=== PATIENT | male | born 1945 | race Caucasian/White ===

== ENCOUNTER 2021-10-12 13:23 | Inpatient (IN) ==
[2021-10-12 14:29] LABS: Hematocrit 42.4 % (40.1-51.0); Hemoglobin 14.5 g/dL (13.7-17.5); Mean Cell Volume 93.2 fL (80.0-100.0); Mean Corpuscular HGB Conc 34.2 g/dL (31.0-36.0); Mean Platelet Volume 9.4 fL (7.4-10.4); Platelet Count 144 K/mcL (140-440); RBC 4.55 M/mcL (4.63-6.08); WBC 12.3 K/mcL (4.5-11.0)
[2021-10-12 14:50] LABS: Band Neutrophils % 2 % (0-10); Lymphocytes % 3 % (15-49); Monocytes % (Manual) 5 % (1-12); Platelet Estimate NORMAL (Normal); RBC Morphology NORMAL (Normal); Reactive Lymphocytes 1 % (0-2); Segmented Neutrophils % 89 % (38-78)
[2021-10-12 14:51] LABS: ALT/SGPT 158 U/L (<40); AST/SGOT 246 U/L (<40); Albumin 3.6 gm/dL (3.2-5.2); Albumin/Globulin Ratio 1.4 (1.0-2.3); Alkaline Phosphatase 269 U/L (39-117); Bilirubin,Total 2.2 mg/dL (0.1-1.0); Blood Urea Nitrogen 13 mg/dL (8-23); Calcium 8.5 mg/dL (8.6-10.4); Carbon Dioxide 23 mmol/L (22-30); Chloride 100 mmol/L (96-108); Globulin 2.6 gm/dL (2.2-3.7); Glomerular Filtration Rate 72; Glucose 122 mg/dL (70-105)
[2021-10-12] MEDS ORDERED: ACETAMINOPHEN 500 MG TABLET PO ONE (15:01)
[2021-10-12] MEDS ORDERED: cefTRIAXone 2 GM in DEXTROSE 5% IN WATER 50 ML IV ONE (15:42)
[2021-10-12] MEDS ORDERED: VANCOMYCIN PER PHARMACY IV ONE ×2 (15:42→15:53)
[2021-10-12] MEDS ORDERED: IPRATROPIUM/ALBUTEROL 3 ML AMPUL.NEB NEB PRN (15:46)
[2021-10-12] MEDS ORDERED: PROCHLORPERAZINE 10 MG/2 ML VIAL IV PRN (15:46)
[2021-10-12] MEDS ORDERED: ACETAMINOPHEN 325 MG TABLET PO PRN (15:46)
[2021-10-12] MEDS ORDERED: MAGNESIUM HYDROXIDE 30 ML ORAL.SUSP PO PRN (15:46)
[2021-10-12] MEDS ORDERED: ONDANSETRON 4 MG/2 ML VIAL IV PRN (15:46)
[2021-10-12] MEDS ORDERED: ONDANSETRON 4 MG ODT TABLET SL PRN (15:46)
--- NOTE | 2021-10-12 15:58 | Emergency Department Note ---
HPI General Chief complaint: Extremity Injury, Lower Stated complaint: Knee pain Time Seen by Provider: 10/12/21 13:39 Source: patient Mode of arrival: ambulatory Limitations: no limitations History of Present Illness HPI Narrative: Narrative: This is a 75-year-old male who presents to the emergency department complaining of worsening left leg pain, swelling, redness, and warmth. About 3 weeks ago patient fell on cement and skinned up his knee. It seemed to be healing until yesterday when he started having redness and warmth. He was seen in the emergency department yesterday and treated for cellulitis. At that time he had an x-ray of his knee that was normal other than some soft tissue swelling. He was started on Keflex. Last night the swelling worsened. He became febrile. Patient states that his knee is painful. He is able to bear weight and to bend it. Related Data Home Medications Medication Instructions Recorded Confirmed aspirin 81 mg tablet,delayed 81 mg PO QDAY tab 11/20/14 10/12/21 release losartan 25 mg tablet 25 mg PO QDAY 10/12/21 10/12/21 rosuvastatin 5 mg tablet 20 mg PO QPM 10/12/21 10/12/21 Previous Rx's Medication Instructions Recorded amlodipine 5 mg tablet 5 mg PO QDAY 90 Days #90 tab 09/23/21 metoprolol succinate 25 mg 25 mg PO QDAY 90 Days #90 tab 09/23/21 tablet,extended release 24 hr olmesartan 20 mg tablet 20 mg PO QDAY #90 tab 09/23/21 sertraline 50 mg tablet 50 mg PO QDAY 90 Days #90 tab 09/23/21 sildenafil 50 mg tablet 50 mg PO QDAY PRN #30 tab 09/23/21 Allergies Allergy/AdvReac Type Severity Reaction Status Date / Time bupropion Allergy Unknown Unknown Verified 10/12/21 13:35 atorvastatin AdvReac Mild Diarrhea Verified 10/12/21 15:52 hydrochlorothiazide AdvReac Mild Dizziness Verified 10/12/21 15:52 lisinopril AdvReac Mild Cough Verified 10/12/21 15:52 Review of Systems ROS ROS Narrative: Narrative: All systems ED: reviewed and negative except as stated. FOR[facility], [facility] Narrative Patient History Narrative: Narrative: Medical/Surgical/Family History All Active Problems Septic prepatellar bursitis (Acute) Cellulitis (Acute) Medicare annual wellness visit, initial (Acute) History of tonsillectomy (Chronic) Hx of inguinal herniorrhaphy (Chronic) History of hernia repair (Chronic) History of appendectomy (Chronic) Syncope (Chronic) Pre-syncope (Chronic) Neck pain (Chronic) Hypertension, essential (Chronic) Hyperlipidemia (Chronic) Head injury (Chronic) Fracture of ribs, multiple (Chronic) Fall from ladder (Chronic 11/30/13) Dyslipidemia (Chronic) Depression (Chronic) Concussion (Chronic) Carotid stenosis (Chronic) Back pain (Chronic) Anxiety disorder (Chronic) AA (alcohol abuse) (Chronic) Medical History AA (alcohol abuse) Anxiety disorder Back pain Upper Carotid stenosis Carotid Ultrasound December 142013 Compression fracture of body of thoracic vertebra Concussion 2013 Depression Dyslipidemia Fall from ladder (11/30/13) Head Contusion, loss of consciousness Fracture of ribs, multiple Two ribs, multiple left sided Headache Hyperlipidemia Hypertension, essential Neck pain Lower Pre-syncope Syncope 11/2013 Surgical History History of appendectomy History of colonoscopy (08/16/16) History of hernia repair Bilateral History of laceration of skin Head and left Elbow History of tonsillectomy Hx of inguinal herniorrhaphy Family History Father Cerebrovascular accident Mother Cerebrovascular accident Social History Smoking Status: Never smoker Alcohol Intake Frequency: former alcohol drinker Substance Use: does not use Exam Narrative Narrative: Narrative: General Limitations: no limitations General appearance: Present alert and in no apparent distress Head Head: Present atraumatic and normocephalic Respiratory Respiratory: Present normal lung sounds bilaterally; Absent rales/crackles or wheezes Cardiovascular Cardiovascular: Present regular rate, normal rhythm and normal heart sounds Adbominal Abdominal: Present soft; Absent tenderness Psychiatric Psychiatric: Present normal affect Skin Skin: Present warm (WNL) and dry Other Other information: Examination of the left knee reveals full extension and flexion to 90 degrees. Patient has anterior and lateral erythema, warmth, swelling, and tenderness. He has developed a 1 cm pustule over the anterior knee just distal to the joint line and several 2 mm pustules in this area. Course Vital Signs Vital signs: Vital Signs Temperature 102.2 F H 10/12/21 13:33 Pulse Rate 96 H 10/12/21 13:33 Respiratory Rate 18 10/12/21 13:33 Blood Pressure 144/72 10/12/21 13:33 Pulse Oximetry (%) 96 10/12/21 13:33 Temperature 102.2 F H 10/12/21 13:33 Pulse Rate 90 10/12/21 15:02 Respiratory Rate 19 10/12/21 15:02 Blood Pressure 132/77 10/12/21 15:01 Pulse Oximetry (%) 94 10/12/21 15:02 [facility] MDM Narrative Medical decision making narrative: Narrative: Patient was started on IV fluids. I discussed the patient with Dr. Tellez, the on-call orthopedist. After our discussion I did attempt to aspirate the larger pustule on patient's knee. The knee was cleaned with iodine, 0.5mL of 1% lidocaine was injected into the skin over the fluctuant area. An 18-gauge needle was then inserted into the fluctuant area and attempt was made to aspirate this. Unfortunately there was no fluid to aspirate. I did unroof one of the smaller pustules and collected a small amount of purulent drainage. Labs were reviewed per the electronic health record. I discussed patient with the hospitalist who has agreed to admit the patient for septic bursitis. Dr. Tellez will consult. IV ceftriaxone and IV vancomycin were ordered. Lab Data Result diagrams: 10/12/21 13:45 10/12/21 13:45 Labs: Lab Results 10/12/21 10/12/21 Range/Units 13:45 13:45 WBC 12.3 H (4.5-11.0) K/mcL RBC 4.55 L (4.63-6.08) M/mcL Hgb 14.5 (13.7-17.5) g/dL Hct 42.4 (40.1-51.0) % MCV 93.2 (80.0-100.0) fL MCH 31.9 (26.0-34.0) pg MCHC 34.2 (31.0-36.0) g/dL RDW 13.0 (11.5-14.5) % Plt Count 144 (140-440) K/mcL MPV 9.4 (7.4-10.4) fL Seg Neutrophils % 89 H (38-78) % Band Neutrophils % 2 (0-10) % Lymphocytes % 3 L (15-49) % Monocytes % (Manual) 5 (1-12) % Reactive Lymphocytes 1 (0-2) % Platelet Estimate Normal (Normal) RBC Morphology Normal (Normal) VBG Lactic Acid 1.1 (0.5-2.0) mmol/L Sodium 133 (133-145) mmol/L Potassium 3.6 (3.3-5.1) mmol/L Chloride 100 (96-108) mmol/L Carbon Dioxide 23 (22-30) mmol/L Anion Gap 10.0 (8.0-16.0) BUN 13 (8-23) mg/dL Creatinine 1.0 (0.7-1.2) mg/dL GFR Calculation 72 Glucose 122 H (70-105) mg/dL Calcium 8.5 L (8.6-10.4) mg/dL Total Bilirubin 2.2 H (0.1-1.0) mg/dL AST 246 H (<40) U/L ALT 158 H (<40) U/L Alkaline Phosphatase 269 H (39-117) U/L Total Protein 6.2 (5.9-8.4) gm/dL Albumin 3.6 (3.2-5.2) gm/dL Globulin 2.6 (2.2-3.7) gm/dL Albumin/Globulin Ratio 1.4 (1.0-2.3) Discharge Plan Patient/Caregiver Discharge Instructions Pt seen by MARKETING ANALYTICS ANALYST/PA only: Yes Clinical Impression: Septic prepatellar bursitis Patient Disposition: Xfer As Inpt ([facility]) Follow up with: Luis E Jeffers PALeahC [Primary Care Provider] - Prescriptions: No Action aspirin 81 mg tablet,delayed release (DR/EC) 81 mg PO QDAY 0RF sertraline 50 mg tablet 50 mg PO QDAY 90 Days Qty: 90 3RF Rx Instructions: for mood olmesartan 20 mg tablet 20 mg PO QDAY Qty: 90 3RF metoprolol succinate 25 mg tablet extended release 24 hr 25 mg PO QDAY 90 Days Qty: 90 3RF amlodipine 5 mg tablet 5 mg PO QDAY 90 Days Qty: 90 3RF sildenafil 50 mg tablet 50 mg PO QDAY PRN (Reason: sexual activity) Qty: 30 0RF Rx Instructions: administer 30 minutes to 4 hours before activity losartan 25 mg tablet 25 mg PO QDAY 0RF Label Comments: [NO ORIGINAL SIG] rosuvastatin 5 mg tablet 20 mg PO QPM 0RF Rx Instructions: for high cholesterol
[2021-10-12] MEDS ORDERED: VANCOMYCIN PER PHARMACY IV SCH (16:00)
[2021-10-12] MEDS ORDERED: 0.9 % SODIUM CHLORIDE 1,000 ML IV ONE (16:17)
[2021-10-12] MEDS ORDERED: VANCOMYCIN 1,500 MG in 0.9 % SODIUM CHLORIDE 500 ML IV ONE (17:00)
[2021-10-12] MEDS: 0.9 % SODIUM CHLORIDE 1,000 ML IV SCH (17:12)
--- NOTE | 2021-10-12 17:47 | Orthopedic History & Physical ---
HPI History of Present Illness Patient information: Note initiated : 10/12/21 at 5:47 pm Service Date, if different from initiated Date: [] Patient: Jurgen Marrero 75 y/o M admitted on 10/12/21 for Knee pain. Chief Complaint: [left knee pain ] Chief complaint: Left knee pain History of present illness: Mr. Marrero is a 75 year old Male who presented to the emergency department complaining of worsening left leg pain, swelling, redness, and warmth. About 3 weeks ago the patient fell on cement and skinned up his knee. It seemed to be healing until yesterday when he started having redness and warmth. He was seen in the emergency department yesterday and treated for cellulitis. At that time he had an x-ray of his knee that was normal other than some soft tissue swelling. He was started on Keflex. Last night the swelling worsened. He became febrile. Patient states that his knee is painful to touch and with any range of motion. He denies: N+V, change in bowel habits, headache or abdomen pain. Review of Systems All systems: reviewed and no additional remarkable complaints except as stated PFSH PFSH All Active Problems Septic prepatellar bursitis (Acute) Cellulitis (Acute) Medicare annual wellness visit, initial (Acute) History of tonsillectomy (Chronic) Hx of inguinal herniorrhaphy (Chronic) History of hernia repair (Chronic) History of appendectomy (Chronic) Syncope (Chronic) Pre-syncope (Chronic) Neck pain (Chronic) Hypertension, essential (Chronic) Hyperlipidemia (Chronic) Head injury (Chronic) Fracture of ribs, multiple (Chronic) Fall from ladder (Chronic 11/30/13) Dyslipidemia (Chronic) Depression (Chronic) Concussion (Chronic) Carotid stenosis (Chronic) Back pain (Chronic) Anxiety disorder (Chronic) AA (alcohol abuse) (Chronic) Medical History AA (alcohol abuse) Anxiety disorder Back pain Upper Carotid stenosis Carotid Ultrasound December 142013 Compression fracture of body of thoracic vertebra Concussion 2014 Depression Dyslipidemia Fall from ladder (11/30/13) Head Contusion, loss of consciousness Fracture of ribs, multiple Two ribs, multiple left sided Headache Hyperlipidemia Hypertension, essential Neck pain Lower Pre-syncope Syncope 11/2013 Surgical History History of appendectomy History of colonoscopy (08/16/16) History of hernia repair Bilateral History of laceration of skin Head and left Elbow History of tonsillectomy Hx of inguinal herniorrhaphy Family History Father Cerebrovascular accident Mother Cerebrovascular accident Social History household members: spouse housing: house lives independently: Yes marital status: education level: high school service: Yes ([id number]) branch: [employer] occupational status: 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, carpentry, business agency owner - laundry, car wash eating out: rarely or never physical activity: walking smoking status: Never smoker alcohol intake frequency: former alcohol drinker substance use type: does not use lisa/mandaeism: None seatbelt use: always MEDS/ALLERGIES Home Medications and Allergies Home Medications Medication Instructions Recorded Confirmed Type aspirin 81 mg tablet,delayed 81 mg PO QDAY tab 11/20/14 10/12/21 History release amlodipine 5 mg tablet 5 mg PO QDAY 90 Days #90 tab 09/23/21 10/12/21 Rx metoprolol succinate 25 mg 25 mg PO QDAY 90 Days #90 tab 09/23/21 10/12/21 Rx tablet,extended release 24 hr olmesartan 20 mg tablet 20 mg PO QDAY #90 tab 09/23/21 10/12/21 Rx sertraline 50 mg tablet 50 mg PO QDAY 90 Days #90 tab 09/23/21 10/12/21 Rx sildenafil 50 mg tablet 50 mg PO QDAY PRN #30 tab 09/23/21 10/12/21 Rx losartan 25 mg tablet 25 mg PO QDAY 10/12/21 10/12/21 History rosuvastatin 5 mg tablet 20 mg PO QPM 10/12/21 10/12/21 History Allergies Allergy/AdvReac Type Severity Reaction Status Date / Time bupropion Allergy Unknown Unknown Verified 10/12/21 13:35 atorvastatin AdvReac Mild Diarrhea Verified 10/12/21 15:52 hydrochlorothiazide AdvReac Mild Dizziness Verified 10/12/21 15:52 lisinopril AdvReac Mild Cough Verified 10/12/21 15:52 Physical Examination Narrative Narrative: Narrative: Results Labs Result Diagrams: 10/12/21 13:45 10/12/21 13:45 Labs: Abnormal lab results 10/12/21 10/12/21 Range/Units 13:45 13:45 WBC 12.3 H (4.5-11.0) K/mcL RBC 4.55 L (4.63-6.08) M/mcL Seg Neutrophils % 89 H (38-78) % Lymphocytes % 3 L (15-49) % Glucose 122 H (70-105) mg/dL Calcium 8.5 L (8.6-10.4) mg/dL Total Bilirubin 2.2 H (0.1-1.0) mg/dL AST 246 H (<40) U/L ALT 158 H (<40) U/L Alkaline Phosphatase 269 H (39-117) U/L H & H 10/12/21 Range/Units 13:45 Hgb 14.5 (13.7-17.5) g/dL Hct 42.4 (40.1-51.0) % All other labs normal. A/P Narrative A/P Narrative: On exam patient is seated in bed in no acute distress, lungs are equal and clear bilaterally heart normal rate and rhythm. Head, neck, and upper extremities are non tender to palpation and exhibit normal range of motion. Chest and abdomen are non-tender. At the right knee area there is diffuse moderate swelling and blanching erythema with a patch of eschar just inferior to the patella. remainder of the right knee is warm well perfused and neuro intact with cap refill less than 2 seconds. right ankle exhibits normal motion and strength. no drainable subcutaneous fluid collection or joint effusion is noted. Plan of Treatment: Impression: septic pre-patellar bursitis Plan: continue IV therapy of Vancomycin and ceftriaxone. pain control PT/OT weight bearing as tolerated. no surgical intervention is warranted at this point. Time Spent With Patient Time: Total time spent is greater than 50% in coordination of care (as documented) at patient's floor/unit and/or counseling patient:
--- NOTE | 2021-10-12 21:14 | Internal Med History&Physical ---
HPI History of Present Illness Patient information: Note initiated : 10/12/21 at 9:14 pm Service Date, if different from initiated Date: [] Patient: Jurgen Marrero a 75 y/o M admitted on 10/12/21 for Knee pain. Chief Complaint: [] History of present illness: Mr. Marrero is a 75 year old M This is a 75-year-old male with a history of essential hypertension, hyperlipidemia, depression, alcoholism was brought into the emergency room because of worsening leg pain and swelling and redness around the knee joint. Patient reported history of fall 3 weeks ago on a hard surface and he had some abrasions there. Patient felt it was healing until day before yesterday started having redness and swelling around the knee joint. Patient was seen at the ER yesterday and was discharged on Keflex for cellulitis at that time his x-ray of the knee was unremarkable other than soft tissue swelling. At home patient swelling started worsening with severe pain and patient was brought back to the ER and reported fever. Initial evaluation in the ED showing leukocytosis mild tachycardia. Discussed with orthopedic surgeon and advised to start the patient on broad-spectrum antibiotic and admit to the facility and they will see the patient. Constitutional Constitutional: Present chills, fever(s), lethargy and weakness; Absent excessive sweating, frequent falls or night sweats EENT Eyes: Absent discharge, floaters, loss of peripheral vision or photophobia Ears: Absent decreased hearing, ear pain or tinnitus Nose, mouth and throat: Absent dizziness, epistaxis or headache(s) Cardiovascular Cardiovascular: Absent diaphoresis, orthopnea or pedal edema Respiratory Respiratory: Absent cough, dyspnea on exertion, stridor, excessive phlegm production or other Gastrointestinal Gastrointestinal: Absent change in bowel habits, constipation, dyspepsia or excessive flatus Musculoskeletal Musculoskeletal: Present arthralgias, joint swelling, limited range of motion, muscle cramps, numbness and stiffness Neurological Neurological: Absent abnormal speech, confusion, dizziness or headache(s) Psychiatric Psychiatric: Absent homicidal ideation, memory loss or paranoia PFSH PFSH All Active Problems Septic prepatellar bursitis (Acute) Cellulitis (Acute) Medicare annual wellness visit, initial (Acute) History of tonsillectomy (Chronic) Hx of inguinal herniorrhaphy (Chronic) History of hernia repair (Chronic) History of appendectomy (Chronic) Syncope (Chronic) Pre-syncope (Chronic) Neck pain (Chronic) Hypertension, essential (Chronic) Hyperlipidemia (Chronic) Head injury (Chronic) Fracture of ribs, multiple (Chronic) Fall from ladder (Chronic 11/30/13) Dyslipidemia (Chronic) Depression (Chronic) Concussion (Chronic) Carotid stenosis (Chronic) Back pain (Chronic) Anxiety disorder (Chronic) AA (alcohol abuse) (Chronic) Medical History AA (alcohol abuse) Anxiety disorder Back pain Upper Carotid stenosis Carotid Ultrasound December 142013 Compression fracture of body of thoracic vertebra Concussion 2013 Depression Dyslipidemia Fall from ladder (11/30/13) Head Contusion, loss of consciousness Fracture of ribs, multiple Two ribs, multiple left sided Headache Hyperlipidemia Hypertension, essential Neck pain Lower Pre-syncope Syncope 11/2013 Surgical History History of appendectomy History of colonoscopy (08/16/16) History of hernia repair Bilateral History of laceration of skin Head and left Elbow History of tonsillectomy Hx of inguinal herniorrhaphy Family History Father Cerebrovascular accident Mother Cerebrovascular accident Social History household members: spouse housing: house lives independently: Yes marital status: education level: high school service: Yes ([id number]) branch: [employer] occupational status: 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, carpentry, business winch operator - laundry, car wash eating out: rarely or never physical activity: walking smoking status: Never smoker alcohol intake frequency: former alcohol drinker substance use type: does not use lisa/faith: None seatbelt use: always MEDS/ALLERGIES Home Medications and Allergies Home Medications Medication Instructions Recorded Confirmed Type aspirin 81 mg tablet,delayed 81 mg PO QDAY tab 11/20/14 10/12/21 History release amlodipine 5 mg tablet 5 mg PO QDAY 90 Days #90 tab 09/23/21 10/12/21 Rx metoprolol succinate 25 mg 25 mg PO QDAY 90 Days #90 tab 09/23/21 10/12/21 Rx tablet,extended release 24 hr olmesartan 20 mg tablet 20 mg PO QDAY #90 tab 09/23/21 10/12/21 Rx sertraline 50 mg tablet 50 mg PO QDAY 90 Days #90 tab 09/23/21 10/12/21 Rx losartan 25 mg tablet 25 mg PO QDAY 10/12/21 10/12/21 History rosuvastatin 5 mg tablet 20 mg PO QPM 10/12/21 10/12/21 History Allergies Allergy/AdvReac Type Severity Reaction Status Date / Time bupropion Allergy Unknown Unknown Verified 10/12/21 13:35 atorvastatin AdvReac Mild Diarrhea Verified 10/12/21 15:52 hydrochlorothiazide AdvReac Mild Dizziness Verified 10/12/21 15:52 lisinopril AdvReac Mild Cough Verified 10/12/21 15:52 EXAM Constitutional Vitals: Temp Pulse Resp BP Pulse Ox 97.8 F 69 22 108/61 99 10/12/21 19:44 10/12/21 19:44 10/12/21 19:44 10/12/21 19:44 10/12/21 19:44 General appearance: cooperative and mild distress Head Head exam: Present atraumatic, normal inspection and normocephalic Eye Eye exam: Present PERRL; Absent conjunctival injection or nystagmus ENT ENT exam: Present mucous membranes moist, normal external ear exam and normal oropharynx Expanded ENT Exam Ear exam: Absent auricular hematoma, auricular trauma or external canal tenderness Throat exam: Present normal inspection; Absent post pharyngeal edema or to nsillar exudate Neck Neck exam: Present full ROM and normal inspection; Absent tenderness Respiratory Respiratory exam: Present normal respiratory exam and CTAB; Absent accessory muscle use or respiratory distress Cardiovascular Cardiovascular exam: Present normal rate and rhythm; Absent bradycardia, clicks or irregular rhythm GI/Abdominal GI/Abdominal exam: Present normal bowel sounds and soft; Absent distended Extremities Exam Extremities exam: Present joint swelling and tenderness; Absent full ROM or pedal edema Back Exam Back exam: Present normal inspection; Absent CVA tenderness (L) or CVA tenderness (R) Neurological Exam Neurological exam: Present alert, CN II-XII intact and reflexes normal; Absent abnormal gait, altered or motor sensory deficit DATA Data Completed and Pending Labs: Labs from last 24 hours 10/12/21 10/12/21 13:45 13:45 WBC 12.3 H RBC 4.55 L Hgb 14.5 Hct 42.4 MCV 93.2 MCH 31.9 MCHC 34.2 RDW 13.0 Plt Count 144 MPV 9.4 Seg Neutrophils % 89 H Band Neutrophils % 2 Lymphocytes % 3 L Monocytes % (Manual) 5 Reactive Lymphocytes 1 Platelet Estimate Normal RBC Morphology Normal VBG Lactic Acid 1.1 Sodium 133 Potassium 3.6 Chloride 100 Carbon Dioxide 23 Anion Gap 10.0 BUN 13 Creatinine 1.0 GFR Calculation 72 Glucose 122 H Calcium 8.5 L Total Bilirubin 2.2 H AST 246 H ALT 158 H Alkaline Phosphatase 269 H Total Protein 6.2 Albumin 3.6 Globulin 2.6 Albumin/Globulin Ratio 1.4 Preliminary micro results at discharge 10/12/21 15:54 Gram Stain - Preliminary Knee - Left A/P Narrative Plan of Treatment: Sepsis Prepatellar bursitis and surrounding Cellulitis Blood culture done in the ER and wound culture done in the ER-pending Patient was started on vancomycin and ceftriaxone-pharmacy to dose vancomycin Ceftriaxone 2 g every 24 hours Orthopedic consulted and will decide on further needing drainage or not Essential hypertension Continue home medications Hydralazine as needed Hyperlipidemia Continue home medications DVT prophylaxis SCDs We will hold any heparin products with expectation of surgical drainage Time Spent With Patient Time: Total time spent is greater than 50% in coordination of care (as documented) at patient's floor/unit and/or counseling patient: Total time spent with greater than 50% in coordination of care (as documented) at patient's floor/unit and/or counseling patient:: 50 - 70 minutes QUALITY VTE Deep Vein Thrombosis/Pulmonary Embolism Present on Admission: No
[2021-10-12] MEDS: 0.9 % SODIUM CHLORIDE 10 ML SYRINGE IV SCH (21:41)
[2021-10-12] MEDS: SENNOSIDES 1 TABLET PO SCH (21:51)
[2021-10-12] MEDS: DOCUSATE SODIUM 100 MG CAPSULE PO SCH (21:51)
[2021-10-13] MEDS: 0.9 % SODIUM CHLORIDE 10 ML SYRINGE IV SCH ×3 (04:43→20:54)
[2021-10-13] MEDS: 0.9 % SODIUM CHLORIDE 1,000 ML IV SCH ×3 (05:44→20:53)
[2021-10-13] MEDS: PANTOPRAZOLE 40 MG TABLET PO SCH (07:48)
[2021-10-13] MEDS: cefTRIAXone 2 GM in DEXTROSE 5% IN WATER 50 ML IV SCH (08:29)
[2021-10-13] MEDS: DOCUSATE SODIUM 100 MG CAPSULE PO SCH ×2 (08:29→20:53)
[2021-10-13] MEDS ORDERED: cefTRIAXone 2 GM in DEXTROSE 5% IN WATER 50 ML IV SCH (09:00)
[2021-10-13] MEDS: HYDROcodone/APAP 5/325MG TABLET PO PRN ×3 (09:14→21:18)
[2021-10-13] MEDS: VANCOMYCIN 1,500 MG in 0.9 % SODIUM CHLORIDE 500 ML IV SCH (09:24)
[2021-10-13 11:21] LABS: ALT/SGPT 84 U/L (<40); AST/SGOT 53 U/L (<40); Albumin 2.7 gm/dL (3.2-5.2); Alkaline Phosphatase 215 U/L (39-117); Bilirubin,Total 0.8 mg/dL (0.1-1.0); Blood Urea Nitrogen 8 mg/dL (8-23); Calcium 7.9 mg/dL (8.6-10.4); Carbon Dioxide 23 mmol/L (22-30); Chloride 102 mmol/L (96-108); Globulin 2.7 gm/dL (2.2-3.7); Glomerular Filtration Rate 82; Glucose 173 mg/dL (70-105)
[2021-10-13 11:22] LABS: Hematocrit 37.2 % (40.1-51.0); Hemoglobin 12.7 g/dL (13.7-17.5); Mean Cell Volume 92.5 fL (80.0-100.0); Mean Corpuscular HGB Conc 34.1 g/dL (31.0-36.0); Mean Platelet Volume 9.6 fL (7.4-10.4); Platelet Count 143 K/mcL (140-440); RBC 4.02 M/mcL (4.63-6.08); Red Cell Distribution Width 12.9 % (11.5-14.5); WBC 9.9 K/mcL (4.5-11.0)
[2021-10-13 12:18] LABS: Band Neutrophils % 4 % (0-10); Lymphocytes % 4 % (15-49); Monocytes % (Manual) 2 % (1-12); Platelet Estimate NORMAL (Normal); RBC Morphology NORMAL (Normal); Segmented Neutrophils % 90 % (38-78)
[2021-10-13] MEDS: SERTRALINE 50 MG TABLET PO SCH (12:53)
[2021-10-13] MEDS: METOPROLOL SUCCINATE 25 MG TAB.XL.24H PO SCH (12:53)
[2021-10-13] MEDS: LOSARTAN 25 MG TABLET PO SCH (12:53)
--- NOTE | 2021-10-13 16:28 | Internal Med Progress Note ---
SUBJECTIVE Subjective Patient information: Note initiated : 10/13/21 at 4:25 pm Service Date, if different from initiated Date: [] Patient: Jurgen Marrero 75 y/o M admitted on 10/12/21 for Knee pain. Chief Complaint: [] Interval history: This is a 75-year-old male with a history of essential hypertension, hyperlipidemia, depression, alcoholism was brought into the emergency room because of worsening leg pain and swelling and redness around the knee joint. Patient reported history of fall 3 weeks ago on a hard surface and he had some abrasions there. Patient felt it was healing until day before yesterday started having redness and swelling around the knee joint. Patient was seen at the ER yesterday and was discharged on Keflex for cellulitis at that time his x-ray of the knee was unremarkable other than soft tissue swelling. At home patient swelling started worsening with severe pain and patient was brought back to the ER and reported fever. Initial evaluation in the ED showing leukocytosis mild tachycardia. Discussed with orthopedic surgeon and advised to start the patient on broad-spectrum antibiotic and admit to the facility and they will see the patient. 10/13 Patient swelling continued within the marked area No fever overnight Patient's liver enzymes improved Orthopedic surgeons evaluated the patient and recommended conservative management with antibiotics Patient had significant pain with activities this morning Leukocytosis improving Pertinent ROS: Review of system unremarkable other than continued having knee pain Fever chills improved Knee swelling remains the same Constitutional Vitals: Vital Signs Temp Pulse Resp BP Pulse Ox 99.2 F H 80 20 132/72 95 10/13/21 11:52 10/13/21 11:52 10/13/21 11:52 10/13/21 11:52 10/13/21 15:46 Period Temp Pulse Resp BP Sys/Martino Pulse Ox Last 24 Hr 97.8 F-99.2 F 69-107 - 108-140/61-79 93-99 Intake and Output 10/13/21 10/13/21 10/13/21 05:59 13:59 21:59 Intake Total 1190 550 750 Output Total 800 350 Balance 390 550 400 Weight 198 lb 3.2 oz Patient Weight 10/14/21 05:59 Weight 198 lb 3.2 oz Intake & Output: Intake & Output 10/13/21 10/13/21 10/13/21 05:59 13:59 21:59 Intake Total 1190 550 750 Output Total 800 350 Balance 390 550 400 Weight 198 lb 3.2 oz Intake: IV 940 550 Sodium Chloride 0.9% 1,000 ml @ 940 75 mls/hr IV .[id number] [facility] Rx#: [id number] Vancomycin 1,500 mg In Sodium 500 Chloride 0.9% 500 ml @ 333.3 mls/hr IV Q24H [facility] Rx#: [id number] Rocephin 2 gm In Dextrose 5% in 50 Water 50 ml @ 100 mls/hr IV DAILY [facility] Rx#:[id number] Oral 250 750 Output: Void Amount 800 350 # of times incontinent of urine 0 Other: Urine Appearance Clear Clear Urine Color Dark Yellow Light Jory Urine Odor Normal # Voids 0 # Bowel Movements 0 # of times incontinent of 0 Bowels General appearance: mild distress Head Head exam: Present atraumatic, normal inspection and normocephalic Eye Eye exam: Present PERRL; Absent conjunctival injection or nystagmus Neck Neck exam: Present full ROM and normal inspection Respiratory Respiratory exam: Present normal respiratory exam and CTAB; Absent accessory muscle use Cardiovascular Cardiovascular exam: Present normal rate and rhythm; Absent bradycardia or gallop Extremities Exam Extremities exam: Present joint swelling and tenderness; Absent full ROM Neurological Exam Neurological exam: Present alert, CN II-XII intact and oriented X3; Absent motor sensory deficit OBJ DATA Labs CBC & Chem 7: 10/13/21 10:13 10/13/21 10:13 Labs: Abnormal Lab Results 10/13/21 10/13/21 10/12/21 10:13 10:13 13:45 WBC RBC 4.02 L Hgb 12.7 L Hct 37.2 L Seg Neutrophils % 90 H Lymphocytes % 4 L Glucose 173 H 122 H Calcium 7.9 L 8.5 L Total Bilirubin 2.2 H AST 53 H 246 H ALT 84 H 158 H Alkaline Phosphatase 215 H 269 H Total Protein 5.4 L Albumin 2.7 L 10/12/21 13:45 WBC 12.3 H RBC 4.55 L Hgb Hct Seg Neutrophils % 89 H Lymphocytes % 3 L Glucose Calcium Total Bilirubin AST ALT Alkaline Phosphatase Total Protein Albumin Meds: Medications Acetaminophen (Acetaminophen 325 Mg Tablet) 650 mg PO Q6HP PRN; Protocol PRN Reason: Per Pain Protocol/Fever > 101 Last Admin: 10/12/21 21:50 Dose: 650 mg Documented by: Hydrocodone Bitart/Acetaminophen (Hydrocodone/Apap 5/325mg Tablet) 1 tab PO Q4HP PRN; Protocol PRN Reason: Per Pain Protocol Last Admin: 10/13/21 09:14 Dose: 1 tab Documented by: Albuterol/Ipratropium (Ipratropium/Albuterol 3 Ml Ampul.Neb) 3 ml NEB Q4HRT PRN PRN Reason: Wheezing Amlodipine Besylate (Amlodipine 5 Mg Tablet) 5 mg PO QDAY [facility] Atorvastatin Calcium (Atorvastatin 40 Mg Tablet) 40 mg PO HS [facility] Docusate Sodium (Docusate Sodium 100 Mg Capsule) 100 mg PO BID [facility] Last Admin: 10/13/21 08:29 Dose: 100 mg Documented by: Sodium Chloride (Sodium Chloride 0.9%) 1,000 mls @ 75 mls/hr IV .[id number] [facility] Last Admin: 10/13/21 05:44 Dose: 75 mls/hr Documented by: Vancomycin HCl 1,500 mg/ (Sodium Chloride) 500 mls @ 333.3 mls/hr IV Q24H [facility] Last Infusion: 10/13/21 12:24 Dose: Infused Documented by: Ceftriaxone Sodium 2 gm/ (Dextrose) 50 mls @ 100 mls/hr IV DAILY [facility] Last Infusion: 10/13/21 09:25 Dose: Infused Documented by: Losartan Potassium (Losartan 25 Mg Tablet) 25 mg PO QDAY [facility] Last Admin: 10/13/21 12:53 Dose: 25 mg Documented by: Magnesium Hydroxide (Magnesium Hydroxide 30 Ml Oral.Susp) 30 ml PO DAILYP PRN PRN Reason: Constipation Metoprolol Succinate (Metoprolol Succinate 25 Mg Tab.Xl.24h) 25 mg PO QDAY [facility] Last Admin: 10/13/21 12:53 Dose: 25 mg Documented by: Ondansetron HCl (Ondansetron 4 Mg/2 Ml Vial) 4 mg IV Q6HP PRN PRN Reason: Nausea And Vomiting Ondansetron HCl (Ondansetron 4 Mg Odt Tablet) 4 mg SL Q6HP PRN PRN Reason: Nausea And Vomiting [facility]oprazole [facility] ([facility] Mg [facility] Last Admin: 10/13/21 07:48 Dose: 40 mg Documented by: Prochlorperazine (Prochlorperazine 10 Mg/2 Ml Vial) 5 mg IV Q4HP PRN PRN Reason: Nausea And Vomiting Senna (Sennosides 1 Tablet) 2 tab PO HS [facility] Last Admin: 10/12/21 21:51 Dose: Not Given Documented by: Sertraline HCl (Sertraline 50 Mg Tablet) 50 mg PO QDAY [facility] Last Admin: 10/13/21 12:53 Dose: 50 mg Documented by: Sodium Chloride (0.9 % Sodium Chloride 10 Ml Syringe) 10 ml IV Q8 [facility] Last Admin: 10/13/21 14:16 Dose: Not Given Documented by: Vancomycin HCl (Vancomycin Per Pharmacy) 1 order IV UD [facility]; Protocol A/P Narrative Plan of Treatment: Sepsis Prepatellar bursitis and surrounding Cellulitis Blood culture done in the ER and wound culture done in the ER-pending Patient was started on vancomycin and ceftriaxone-pharmacy to dose vancomycin Ceftriaxone 2 g every 24 hours Orthopedic consulted and will decide on further needing drainage or not Leukocytosis and sepsis improved Elevated liver enzymes Possibly hepatocellular injury from sepsis Monitor liver enzymes-improving total bilirubin normalized Ultrasound of the right upper quadrant as needed Essential hypertension Continue home medications Hydralazine as needed Hyperlipidemia Continue home medications DVT prophylaxis SCDs We will hold any heparin products with expectation of surgical drainage Time Spent With Patient Time: Total time spent is greater than 50% in coordination of care (as documented) at patient's floor/unit and/or counseling patient: QUALITY VTE Deep Vein Thrombosis/Pulmonary Embolism Present on Admission: No
[2021-10-13] MEDS: ATORVASTATIN 40 MG TABLET PO SCH (20:53)
[2021-10-13] MEDS: SENNOSIDES 1 TABLET PO SCH (20:53)
--- NOTE | 2021-10-13 21:56 | Orthopedic Progress Note ---
SUBJECTIVE Subjective Patient information: Note initiated : 10/13/21 at 9:52 pm Service Date, if different from initiated Date: [] Patient: Jurgen Marrero 75 y/o M admitted on 10/12/21 for Knee pain. Chief Complaint: [] Principal diagnosis: left septic prepatellar bursitis Interval history: doing a little better today Constitutional Vitals: Vital Signs Temp Pulse Resp BP Pulse Ox 99.9 F H 81 22 119/64 95 10/13/21 19:00 10/13/21 19:00 10/13/21 19:00 10/13/21 19:00 10/13/21 19:00 Period Temp Pulse Resp BP Sys/Martino Pulse Ox Last 24 Hr 98.2 F-100.6 F 74-101 -22 119-157/64-79 95-97 Intake and Output 10/13/21 10/13/21 10/13/21 05:59 13:59 21:59 Intake Total 1642 726 7107 Output Total 800 350 Balance 852 111 0085 Weight 198 lb 3.2 oz 207 lb 12.8 oz Patient Weight 10/14/21 05:59 Weight 207 lb 12.8 oz Intake & Output: Intake & Output 10/13/21 10/13/21 10/13/21 05:59 13:59 21:59 Intake Total 5591 504 2536 Output Total 800 350 Balance 821 962 9965 Weight 198 lb 3.2 oz 207 lb 12.8 oz Intake: IV 397 453 6690 Sodium Chloride 0.9% 1,000 ml @ 940 1000 75 mls/hr IV .[id number] [facility] Rx#: [id number] Vancomycin 1,500 mg In Sodium 500 Chloride 0.9% 500 ml @ 333.3 mls/hr IV Q24H [facility] Rx#: [id number] Rocephin 2 gm In Dextrose 5% in 50 Water 50 ml @ 100 mls/hr IV DAILY [facility] Rx#:[id number] Oral 250 1200 Output: Void Amount 800 350 # of times incontinent of urine 0 Other: Meal Dinner Percent of Meal Consumed 75% Feeding Ability Assist with Tray Set Up Urine Appearance Clear Clear Urine Color Dark Yellow Light Jory Urine Odor Normal # Voids 0 # Bowel Movements 0 # of times incontinent of 0 Bowels Extremities Exam Extremities exam: Present calf tenderness, full ROM, joint swelling, normal capillary refill, pedal edema, tenderness, Foot pink and warm and neurovascular intact Additional comments: prepatellar area distal to patella, no effusion, no pain with rom knee. OBJ DATA Labs CBC & Chem 7: 10/13/21 10:13 10/13/21 10:13 Labs: Abnormal Lab Results 10/13/21 10/13/21 10/12/21 10:13 10:13 13:45 WBC RBC 4.02 L Hgb 12.7 L Hct 37.2 L Seg Neutrophils % 90 H Lymphocytes % 4 L Glucose 173 H 122 H Calcium 7.9 L 8.5 L Total Bilirubin 2.2 H AST 53 H 246 H ALT 84 H 158 H Alkaline Phosphatase 215 H 269 H Total Protein 5.4 L Albumin 2.7 L 10/12/21 13:45 WBC 12.3 H RBC 4.55 L Hgb Hct Seg Neutrophils % 89 H Lymphocytes % 3 L Glucose Calcium Total Bilirubin AST ALT Alkaline Phosphatase Total Protein Albumin Meds: Medications Acetaminophen (Acetaminophen 325 Mg Tablet) 650 mg PO Q6HP PRN; Protocol PRN Reason: Per Pain Protocol/Fever > 101 Last Admin: 10/12/21 21:50 Dose: 650 mg Documented by: Hydrocodone Bitart/Acetaminophen (Hydrocodone/Apap 5/325mg Tablet) 1 tab PO Q4HP PRN; Protocol PRN Reason: Per Pain Protocol Last Admin: 10/13/21 21:18 Dose: 1 tab Documented by: Albuterol/Ipratropium (Ipratropium/Albuterol 3 Ml Ampul.Neb) 3 ml NEB Q4HRT PRN PRN Reason: Wheezing Amlodipine Besylate (Amlodipine 5 Mg Tablet) 5 mg PO QDAY [facility] Atorvastatin Calcium (Atorvastatin 40 Mg Tablet) 40 mg PO HS [facility] Last Admin: 10/13/21 20:53 Dose: 40 mg Documented by: Docusate Sodium (Docusate Sodium 100 Mg Capsule) 100 mg PO BID [facility] Last Admin: 10/13/21 20:53 Dose: 100 mg Documented by: Sodium Chloride (Sodium Chloride 0.9%) 1,000 mls @ 75 mls/hr IV .[id number] [facility] Last Admin: 10/13/21 20:53 Dose: 75 mls/hr Documented by: Vancomycin HCl 1,500 mg/ (Sodium Chloride) 500 mls @ 333.3 mls/hr IV Q24H [facility] Last Infusion: 10/13/21 12:24 Dose: Infused Documented by: Ceftriaxone Sodium 2 gm/ (Dextrose) 50 mls @ 100 mls/hr IV DAILY [facility] Last Infusion: 10/13/21 09:25 Dose: Infused Documented by: Losartan Potassium (Losartan 25 Mg Tablet) 25 mg PO QDAY [facility] Last Admin: 10/13/21 12:53 Dose: 25 mg Documented by: Magnesium Hydroxide (Magnesium Hydroxide 30 Ml Oral.Susp) 30 ml PO DAILYP PRN PRN Reason: Constipation Metoprolol Succinate (Metoprolol Succinate 25 Mg Tab.Xl.24h) 25 mg PO QDAY [facility] Last Admin: 10/13/21 12:53 Dose: 25 mg Documented by: Ondansetron HCl (Ondansetron 4 Mg/2 Ml Vial) 4 mg IV Q6HP PRN PRN Reason: Nausea And Vomiting Ondansetron HCl (Ondansetron 4 Mg Odt Tablet) 4 mg SL Q6HP PRN PRN Reason: Nausea And Vomiting Pantoprazole Sodium (Pantoprazole 40 Mg Tablet) 40 mg PO QAMAC [facility] Last Admin: 10/13/21 07:48 Dose: 40 mg Documented by: Prochlorperazine (Prochlorperazine 10 Mg/2 Ml Vial) 5 mg IV Q4HP PRN PRN Reason: Nausea And Vomiting Senna (Sennosides 1 Tablet) 2 tab PO HS [facility] Last Admin: 10/13/21 20:53 Dose: 2 tab Documented by: Sertraline HCl (Sertraline 50 Mg Tablet) 50 mg PO QDAY [facility] Last Admin: 10/13/21 12:53 Dose: 50 mg Documented by: Sodium Chloride (0.9 % Sodium Chloride 10 Ml Syringe) 10 ml IV Q8 [facility] Last Admin: 10/13/21 20:54 Dose: Not Given Documented by: Vancomycin HCl (Vancomycin Per Pharmacy) 1 order IV UD [facility]; Protocol A/P Narrative Plan of Treatment: left septic prepatellar burisitis plan: on iv abx improving slowly will watch closely and if does not continue to improve or gets worse will perform I and D, at this point i think it will resolve without surgery Time Spent With Patient Time: Total time spent is greater than 50% in coordination of care (as documented) at patient's floor/unit and/or counseling patient:
[2021-10-14] MEDS: HYDROcodone/APAP 5/325MG TABLET PO PRN ×2 (02:44→18:47)
[2021-10-14] MEDS: VANCOMYCIN 1,500 MG in 0.9 % SODIUM CHLORIDE 500 ML IV SCH ×2 (07:27→09:04)
[2021-10-14] MEDS: 0.9 % SODIUM CHLORIDE 10 ML SYRINGE IV SCH ×3 (08:09→20:22)
[2021-10-14] MEDS: METOPROLOL SUCCINATE 25 MG TAB.XL.24H PO SCH (08:46)
[2021-10-14] MEDS: DOCUSATE SODIUM 100 MG CAPSULE PO SCH ×2 (08:46→20:21)
[2021-10-14] MEDS: PANTOPRAZOLE 40 MG TABLET PO SCH (08:46)
[2021-10-14] MEDS: SERTRALINE 50 MG TABLET PO SCH (08:46)
[2021-10-14] MEDS: amLODIPine 5 MG TABLET PO SCH (08:46)
[2021-10-14] MEDS: LOSARTAN 25 MG TABLET PO SCH (08:46)
[2021-10-14] MEDS: 0.9 % SODIUM CHLORIDE 1,000 ML IV SCH ×2 (11:24→21:55)
[2021-10-14] MEDS: cefTRIAXone 2 GM in DEXTROSE 5% IN WATER 50 ML IV SCH (11:24)
--- NOTE | 2021-10-14 12:20 | Internal Med Progress Note ---
SUBJECTIVE Subjective Patient information: Note initiated : 10/14/21 at 12:18 pm Service Date, if different from initiated Date: [] Patient: Jurgen Marrero 75 y/o M admitted on 10/12/21 for Knee pain. Chief Complaint: [] Principal diagnosis: left septic prepatellar bursitis Interval history: 75-year-old male with a history of essential hypertension, hyperlipidemia, depression, alcoholism was brought into the emergency room because of worsening leg pain and swelling and redness around the knee joint. Patient reported hi story of fall 3 weeks ago on a hard surface and he had some abrasions there. Patient felt it was healing until day before yesterday started having redness and swelling around the knee joint. Patient was seen at the ER yesterday and was discharged on Keflex for cellulitis at that time his x-ray of the knee was unremarkable other than soft tissue swelling. At home patient swelling started worsening with severe pain and patient was brought back to the ER and reported fever. Initial evaluation in the ED showing leukocytosis mild tachycardia. Discussed with orthopedic surgeon and advised to start the patient on broad-spectrum antibiotic and admit to the facility and they will see the patient. 10/13 Patient swelling continued within the marked area No fever overnight Patient's liver enzymes improved Orthopedic surgeons evaluated the patient and recommended conservative management with antibiotics Patient had significant pain with activities this morning Leukocytosis improving 10/14 Patient continued having significant pain Redness contained within the marked area but still fluctuant and feel tight Orthopedic surgeon evaluated and continued antibiotic and conservative measures for now Constitutional Vitals: Vital Signs Temp Pulse Resp BP Pulse Ox 98.3 F 67 20 145/76 96 10/14/21 08:00 10/14/21 08:00 10/14/21 08:00 10/14/21 08:00 10/14/21 08:00 Period Temp Pulse Resp BP Sys/Martino Pulse Ox Last 24 Hr 98.3 F-100.6 F 67-101 - 119-157/64-79 94-97 Intake and Output 10/13/21 10/14/21 10/14/21 21:59 05:59 13:59 Intake Total 2200 500 1550 Output Total 575 575 Balance 1625 -75 1550 Weight 207 lb 12.8 oz Intake & Output: Intake & Output 10/13/21 10/14/21 10/14/21 21:59 05:59 13:59 Intake Total 2200 500 1550 Output Total 575 575 Balance 1625 -75 1550 Weight 207 lb 12.8 oz Intake: IV 1000 1550 Sodium Chloride 0.9% 1,000 ml @ 1000 1000 75 mls/hr IV .[id number] [facility] Rx#: [id number] Vancomycin 1,500 mg In Sodium 500 Chloride 0.9% 500 ml @ 333.3 mls/hr IV Q24H [facility] Rx#: [id number] Rocephin 2 gm In Dextrose 5% in 50 Water 50 ml @ 100 mls/hr IV DAILY [facility] Rx#:[id number] Oral 1200 500 Output: Void Amount 575 575 Other: Meal Dinner Percent of Meal Consumed 75% Feeding Ability Assist with Tray Set Up Urine Appearance Clear Clear Urine Color Light Jory Bright Yellow Urine Odor Normal Head Head exam: Present atraumatic and normal inspection Eye Eye exam: Present EOMI; Absent periorbital swelling or scleral icterus ENT ENT exam: Present mucous membranes moist and normal oropharynx Respiratory Respiratory exam: Present CTAB; Absent accessory muscle use or respiratory distress Cardiovascular Cardiovascular exam: Absent bradycardia, gallop or RRR GI/Abdominal GI/Abdominal exam: Present normal bowel sounds and soft; Absent distended Extremities Exam Additional comments: Left knee cellulitis and redness contained within the marked area, area is fluctuant and tender OBJ DATA Labs CBC & Chem 7: 10/13/21 10:13 10/13/21 10:13 Labs: Abnormal Lab Results 10/13/21 10/13/21 10/12/21 10:13 10:13 13:45 WBC RBC 4.02 L Hgb 12.7 L Hct 37.2 L Seg Neutrophils % 90 H Lymphocytes % 4 L Glucose 173 H 122 H Calcium 7.9 L 8.5 L Total Bilirubin 2.2 H AST 53 H 246 H ALT 84 H 158 H Alkaline Phosphatase 215 H 269 H Total Protein 5.4 L Albumin 2.7 L 10/12/21 13:45 WBC 12.3 H RBC 4.55 L Hgb Hct Seg Neutrophils % 89 H Lymphocytes % 3 L Glucose Calcium Total Bilirubin AST ALT Alkaline Phosphatase Total Protein Albumin Meds: Medications Acetaminophen (Acetaminophen 325 Mg Tablet) 650 mg PO Q6HP PRN; Protocol PRN Reason: Per Pain Protocol/Fever > 101 Last Admin: 10/12/21 21:50 Dose: 650 mg Documented by: Hydrocodone Bitart/Acetaminophen (Hydrocodone/Apap 5/325mg Tablet) 1 tab PO Q4HP PRN; Protocol PRN Reason: Per Pain Protocol Last Admin: 10/14/21 02:44 Dose: 1 tab Documented by: Albuterol/Ipratropium (Ipratropium/Albuterol 3 Ml Ampul.Neb) 3 ml NEB Q4HRT PRN PRN Reason: Wheezing Amlodipine Besylate (Amlodipine 5 Mg Tablet) 5 mg PO QDAY [facility] Last Admin: 10/14/21 08:46 Dose: 5 mg Documented by: Atorvastatin Calcium (Atorvastatin 40 Mg Tablet) 40 mg PO HS [facility] Last Admin: 10/13/21 20:53 Dose: 40 mg Documented by: Docusate Sodium (Docusate Sodium 100 Mg Capsule) 100 mg PO BID [facility] Last Admin: 10/14/21 08:46 Dose: 100 mg Documented by: Sodium Chloride (Sodium Chloride 0.9%) 1,000 mls @ 75 mls/hr IV .[id number] [facility] Last Admin: 10/14/21 11:24 Dose: 75 mls/hr Documented by: Vancomycin HCl 1,500 mg/ (Sodium Chloride) 500 mls @ 333.3 mls/hr IV Q24H [facility] Last Infusion: 10/14/21 09:19 Dose: Infused Documented by: Ceftriaxone Sodium 2 gm/ (Dextrose) 50 mls @ 100 mls/hr IV DAILY [facility] Last Infusion: 10/14/21 11:54 Dose: Infused Documented by: Losartan Potassium (Losartan 25 Mg Tablet) 25 mg PO QDAY [facility] Last Admin: 10/14/21 08:46 Dose: 25 mg Documented by: Magnesium Hydroxide (Magnesium Hydroxide 30 Ml Oral.Susp) 30 ml PO DAILYP PRN PRN Reason: Constipation Metoprolol Succinate (Metoprolol Succinate 25 Mg Tab.Xl.24h) 25 mg PO QDAY [facility] Last Admin: 10/14/21 08:46 Dose: 25 mg Documented by: Ondansetron HCl (Ondansetron 4 Mg/2 Ml Vial) 4 mg IV Q6HP PRN PRN Reason: Nausea And Vomiting Ondansetron HCl (Ondansetron 4 Mg Odt Tablet) 4 mg SL Q6HP PRN PRN Reason: Nausea And Vomiting Pantoprazole Sodium (Pantoprazole 40 Mg Tablet) 40 mg PO QAMAC [facility] Last Admin: 10/14/21 08:46 Dose: 40 mg Documented by: Prochlorperazine (Prochlorperazine 10 Mg/2 Ml Vial) 5 mg IV Q4HP PRN PRN Reason: Nausea And Vomiting Senna (Sennosides 1 Tablet) 2 tab PO HS [facility] Last Admin: 10/13/21 20:53 Dose: 2 tab Documented by: Sertraline HCl (Sertraline 50 Mg Tablet) 50 mg PO QDAY [facility] Last Admin: 10/14/21 08:46 Dose: 50 mg Documented by: Sodium Chloride (0.9 % Sodium Chloride 10 Ml Syringe) 10 ml IV Q8 [facility] Last Admin: 10/14/21 08:09 Dose: Not Given Documented by: Vancomycin HCl (Vancomycin Per Pharmacy) 1 order IV UD [facility]; Protocol A/P Narrative Plan of Treatment: Sepsis Prepatellar bursitis and surrounding Cellulitis Blood culture done in the ER -no growth so far Wound culture done in the ER-growing Staphylococcus aureus-sensitivity pending Continue vancomycin and ceftriaxone-pharmacy to dose vancomycin Ceftriaxone 2 g every 24 hours Orthopedic consulted and will decide on further needing drainage or not Leukocytosis and sepsis improved Elevated liver enzymes-improved History of alcoholism Possibly hepatocellular injury from sepsis Monitor liver enzymes-improving total bilirubin normalized Ultrasound of the right upper quadrant as needed Essential hypertension Continue home medications Hydralazine as needed Hyperlipidemia Continue home medications DVT prophylaxis SCDs We will hold any heparin products with expectation of surgical drainage Time Spent With Patient Time: Total time spent is greater than 50% in coordination of care (as documented) at patient's floor/unit and/or counseling patient: Critical Care Time: No QUALITY VTE Deep Vein Thrombosis/Pulmonary Embolism Present on Admission: No
[2021-10-14 13:40] LABS: Albumin 3.3 gm/dL (3.2-5.2); Blood Urea Nitrogen 9 mg/dL (8-23); Calcium 8.2 mg/dL (8.6-10.4); Carbon Dioxide 27 mmol/L (22-30); Chloride 102 mmol/L (96-108); Glomerular Filtration Rate 86; Glucose 98 mg/dL (70-105); Phosphorous 2.7 mg/dL (2.5-4.5)
[2021-10-14] MEDS: ATORVASTATIN 40 MG TABLET PO SCH (20:21)
[2021-10-14] MEDS: SENNOSIDES 1 TABLET PO SCH (20:21)
[2021-10-15] MEDS: 0.9 % SODIUM CHLORIDE 1,000 ML IV SCH ×2 (02:22→11:39)
[2021-10-15] MEDS: 0.9 % SODIUM CHLORIDE 10 ML SYRINGE IV SCH ×4 (05:03→20:57)
[2021-10-15 06:46] LABS: Basophils # (Auto) 0.02 K/mcL (0.00-0.30); Basophils % (Auto) 0.2 % (0.0-2.0); Eosinophils % (Auto) 1.2 % (0.0-7.0); Hematocrit 36.6 % (40.1-51.0); Hemoglobin 12.2 g/dL (13.7-17.5); Lymphocytes # (Auto) 0.85 K/mcL (1.50-4.80); Lymphocytes % (Auto) 9.9 % (15.5-49.0); Mean Cell Volume 93.1 fL (80.0-100.0); Mean Corpuscular HGB Conc 33.3 g/dL (31.0-36.0); Mean Platelet Volume 9.2 fL (7.4-10.4); Monocytes # (Auto) 0.53 K/mcL (0.10-0.90); Monocytes % (Auto) 6.2 % (1.0-12.0); Neutrophils % (Auto) 82.5 % (38.0-78.0); Platelet Count 149 K/mcL (140-440); RBC 3.93 M/mcL (4.63-6.08); Red Cell Distribution Width 12.6 % (11.5-14.5); WBC 8.6 K/mcL (4.5-11.0)
[2021-10-15 07:04] LABS: ALT/SGPT 82 U/L (<40); AST/SGOT 65 U/L (<40); Albumin/Globulin Ratio 1.1 (1.0-2.3); Alkaline Phosphatase 364 U/L (39-117); Bilirubin,Total 0.7 mg/dL (0.1-1.0); Blood Urea Nitrogen 6 mg/dL (8-23); Calcium 8.2 mg/dL (8.6-10.4); Carbon Dioxide 26 mmol/L (22-30); Chloride 98 mmol/L (96-108); Globulin 2.8 gm/dL (2.2-3.7); Glomerular Filtration Rate 86; Glucose 104 mg/dL (70-105)
--- NOTE | 2021-10-15 07:35 | Orthopedic Progress Note ---
SUBJECTIVE Subjective Patient information: Note initiated : 10/15/21 at 7:33 am Service Date, if different from initiated Date: [] Patient: Jurgen Marrero 75 y/o M admitted on 10/12/21 for Knee pain. Chief Complaint: [Knee septic infrapatellar bursitis] Principal diagnosis: left septic infrapatellar bursitis Pertinent ROS: 10 pints reviewed and are negative except mentioned Constitutional Vitals: Vital Signs Temp Pulse Resp BP Pulse Ox 99.0 F 82 24 H 149/80 93 10/15/21 02:27 10/15/21 02:27 10/15/21 02:27 10/15/21 02:27 10/15/21 02:27 Period Temp Pulse Resp BP Sys/Martino Pulse Ox Last 24 Hr 98.3 F-100.5 F 67-85 20-24 128-149/69-80 93-100 Intake and Output 10/14/21 10/15/21 10/15/21 21:59 05:59 13:59 Intake Total 800 1300 Output Total 0965 291 2249 Balance -200 550 -1000 Weight 207 lb 6.4 oz Intake & Output: Intake & Output 10/14/21 10/15/21 10/15/21 21:59 05:59 13:59 Intake Total 800 1300 Output Total 8082 206 3775 Balance -200 550 -1000 Weight 207 lb 6.4 oz Intake: IV 1000 Sodium Chloride 0.9% 1,000 ml @ 1000 75 mls/hr IV .[id number] [facility] Rx#: [id number] Oral 800 300 Output: Void Amount [id number] Other: Urine Appearance Clear Urine Color Bright Yellow OBJ DATA Labs CBC & Chem 7: 10/15/21 05:59 10/15/21 05:59 Labs: Abnormal Lab Results 10/15/21 10/15/21 10/14/21 05:59 05:59 12:25 WBC RBC 3.93 L Hgb 12.2 L Hct 36.6 L Neut % (Auto) 82.5 H Lymph % (Auto) 9.9 L Lymph # (Auto) 0.85 L Seg Neutrophils % Lymphocytes % Potassium 3.2 L BUN 6 L Glucose Calcium 8.2 L 8.2 L Total Bilirubin AST 65 H ALT 82 H Alkaline Phosphatase 364 H Total Protein 5.8 L Albumin 3.0 L 10/13/21 10/13/21 10/12/21 10:13 10:13 13:45 WBC RBC 4.02 L Hgb 12.7 L Hct 37.2 L Neut % (Auto) Lymph % (Auto) Lymph # (Auto) Seg Neutrophils % 90 H Lymphocytes % 4 L Potassium BUN Glucose 173 H 122 H Calcium 7.9 L 8.5 L Total Bilirubin 2.2 H AST 53 H 246 H ALT 84 H 158 H Alkaline Phosphatase 215 H 269 H Total Protein 5.4 L Albumin 2.7 L 10/12/21 13:45 WBC 12.3 H RBC 4.55 L Hgb Hct Neut % (Auto) Lymph % (Auto) Lymph # (Auto) Seg Neutrophils % 89 H Lymphocytes % 3 L Potassium BUN Glucose Calcium Total Bilirubin AST ALT Alkaline Phosphatase Total Protein Albumin Meds: Medications Acetaminophen (Acetaminophen 325 Mg Tablet) 650 mg PO Q6HP PRN; Protocol PRN Reason: Per Pain Protocol/Fever > 101 Last Admin: 10/12/21 21:50 Dose: 650 mg Documented by: Hydrocodone Bitart/Acetaminophen (Hydrocodone/Apap 5/325mg Tablet) 1 tab PO Q4HP PRN; Protocol PRN Reason: Per Pain Protocol Last Admin: 10/14/21 18:47 Dose: 1 tab Documented by: Albuterol/Ipratropium (Ipratropium/Albuterol 3 Ml Ampul.Neb) 3 ml NEB Q4HRT PRN PRN Reason: Wheezing Amlodipine Besylate (Amlodipine 5 Mg Tablet) 5 mg PO QDAY [facility] Last Admin: 10/14/21 08:46 Dose: 5 mg Documented by: Atorvastatin Calcium (Atorvastatin 40 Mg Tablet) 40 mg PO HS [facility] Last Admin: 10/14/21 20:21 Dose: 40 mg Documented by: Docusate Sodium (Docusate Sodium 100 Mg Capsule) 100 mg PO BID [facility] Last Admin: 10/14/21 20:21 Dose: 100 mg Documented by: Sodium Chloride (Sodium Chloride 0.9%) 1,000 mls @ 75 mls/hr IV .[id number] [facility] Last Admin: 10/15/21 02:22 Dose: 75 mls/hr Documented by: Vancomycin HCl 1,500 mg/ (Sodium Chloride) 500 mls @ 333.3 mls/hr IV Q24H [facility] Last Infusion: 10/14/21 09:19 Dose: Infused Documented by: Ceftriaxone Sodium 2 gm/ (Dextrose) 50 mls @ 100 mls/hr IV DAILY [facility] Last Infusion: 10/14/21 11:54 Dose: Infused Documented by: Losartan Potassium (Losartan 25 Mg Tablet) 25 mg PO QDAY [facility] Last Admin: 10/14/21 08:46 Dose: 25 mg Documented by: Magnesium Hydroxide (Magnesium Hydroxide 30 Ml Oral.Susp) 30 ml PO DAILYP PRN PRN Reason: Constipation Metoprolol Succinate (Metoprolol Succinate 25 Mg Tab.Xl.24h) 25 mg PO QDAY [facility] Last Admin: 10/14/21 08:46 Dose: 25 mg Documented by: Ondansetron HCl (Ondansetron 4 Mg/2 Ml Vial) 4 mg IV Q6HP PRN PRN Reason: Nausea And Vomiting Ondansetron HCl (Ondansetron 4 Mg Odt Tablet) 4 mg SL Q6HP PRN PRN Reason: Nausea And Vomiting Pantoprazole Sodium (Pantoprazole 40 Mg Tablet) 40 mg PO QAMAC [facility] Last Admin: 10/14/21 08:46 Dose: 40 mg Documented by: Prochlorperazine (Prochlorperazine 10 Mg/2 Ml Vial) 5 mg IV Q4HP PRN PRN Reason: Nausea And Vomiting Senna (Sennosides 1 Tablet) 2 tab PO HS [facility] Last Admin: 10/14/21 20:21 Dose: 2 tab Documented by: Sertraline HCl (Sertraline 50 Mg Tablet) 50 mg PO QDAY [facility] Last Admin: 10/14/21 08:46 Dose: 50 mg Documented by: Sodium Chloride (0.9 % Sodium Chloride 10 Ml Syringe) 10 ml IV Q8 [facility] Last Admin: 10/15/21 05:03 Dose: Not Given Documented by: Vancomycin HCl (Vancomycin Per Pharmacy) 1 order IV UD [facility]; Protocol A/P Narrative A/P Narrative: Patient seen and examined this a.m. wake alert conversant no complaints of pain Endorses he is feeling much better, no complaints of fever, nausea vomiting Left lower extremity erythema is much improved with area of induration and subcutaneous infrapatellar area. We discussed treatment options including surgical open inccision and drainage and elected to proceed with a bedside percutaneous needle aspiration and drainage. After informed consent the area was cleansed with chlorhexidine and anesthetized with 1% lidocaine. Thereafter a 5 Bulgarian yueh needle was inserted at the lateral aspect of the effusion which immediately began draining light grant purulent fluid, thereafter an 18-gauge IV catheter was inserted at the medial aspect of the effusion and flushed with 20 cc until the The Yueh needle Began draining clear fluid. The area was dressed with clean 4 x 4's and wrapped with Kerlix instructions were given to nursing staff to change this at the end of the day to clean 4 x 4's Kerlix and Saroj wrap to provide mild compression to the ar ea. Fluid removed was sent to laboratory for Gram stain, culture and sensitivity We'll continue to monitor over his hospital stay but anticipate improvement with conservative therapy including IV ABX . Anticipate patient will transition to oral antibiotics upon discharge based on sensitivities. Plan of Treatment: Sepsis Prepatellar bursitis and surrounding Cellulitis Blood culture done in the ER -no growth so far Wound culture done in the ER-growing Staphylococcus aureus-sensitivity pending Continue vancomycin and ceftriaxone-pharmacy to dose vancomycin Ceftriaxone 2 g every 24 hours Orthopedic consulted and will decide on further needing drainage or not Leukocytosis and sepsis improved Elevated liver enzymes-improved History of alcoholism Possibly hepatocellular injury from sepsis Monitor liver enzymes-improving total bilirubin normalized Ultrasound of the right upper quadrant as needed Essential hypertension Continue home medications Hydralazine as needed Hyperlipidemia Continue home medications DVT prophylaxis SCDs We will hold any heparin products with expectation of surgical drainage Time Spent With Patient Time: Total time spent is greater than 50% in coordination of care (as documented) at patient's floor/unit and/or counseling patient:
[2021-10-15] MEDS: METOPROLOL SUCCINATE 25 MG TAB.XL.24H PO SCH (09:27)
[2021-10-15] MEDS: LOSARTAN 25 MG TABLET PO SCH (09:27)
[2021-10-15] MEDS: PANTOPRAZOLE 40 MG TABLET PO SCH (09:27)
[2021-10-15] MEDS: cefTRIAXone 2 GM in DEXTROSE 5% IN WATER 50 ML IV SCH (09:27)
[2021-10-15] MEDS: amLODIPine 5 MG TABLET PO SCH (09:27)
[2021-10-15] MEDS: SERTRALINE 50 MG TABLET PO SCH (09:28)
[2021-10-15] MEDS: DOCUSATE SODIUM 100 MG CAPSULE PO SCH ×2 (09:28→20:17)
[2021-10-15] MEDS: VANCOMYCIN 1,500 MG in 0.9 % SODIUM CHLORIDE 500 ML IV SCH ×4 (10:09→22:09)
[2021-10-15] MEDS ORDERED: 0.9 % SODIUM CHLORIDE 10 ML SYRINGE IV PRN (10:30)
--- NOTE | 2021-10-15 10:45 | Internal Med Progress Note ---
SUBJECTIVE Subjective Patient information: Note initiated : 10/15/21 at 10:41 am Service Date, if different from initiated Date: [] Patient: Jurgen Marrero 75 y/o M admitted on 10/12/21 for Knee pain. Chief Complaint: [] Principal diagnosis: left septic infrapatellar bursitis Interval history: 75-year-old male with a history of essential hypertension, hyperlipidemia, depression, alcoholism was brought into the emergency room because of worsening leg pain and swelling and redness around the knee joint. Patient reported history of fall 3 weeks ago on a hard surface and he had some abrasions there. Patient felt it was healing until day before yesterday started having redness and swelling around the knee joint. Patient was seen at the ER yesterday and was discharged on Keflex for cellulitis at that time his x-ray of the knee was unremarkable other than soft tissue swelling. At home patient swelling started worsening with severe pain and patient was brought back to the ER and reported fever. Initial evaluation in the ED showing leukocytosis mild tachycardia. Discussed with orthopedic surgeon and advised to start the patient on broad-spectrum antibiotic and admit to the facility and they will see the patient. 10/13 Patient swelling continued within the marked area No fever overnight Patient's liver enzymes improved Orthopedic surgeons evaluated the patient and recommended conservative management with antibiotics Patient had significant pain with activities this morning Leukocytosis improving 10/14 Patient continued having significant pain Redness contained within the marked area but still fluctuant and feel tight Orthopedic surgeon evaluated and continued antibiotic and conservative measures for now 10/15 Orthopedic evaluated the patient and underwent a needle aspiration removed almost 40 to 50 mL of pus drainage Patient's culture from the wound growing MSSA We will switch the antibiotic to cefazolin and p.o. doxycycline Discussed with orthopedic surgeon and recommended 10 to 14 days of IV antibiotic outpatient and follow-up in the clinic We will try to get the PICC line Constitutional Vitals: Vital Signs Temp Pulse Resp BP Pulse Ox 98.5 F 77 24 H 152/80 96 10/15/21 07:53 10/15/21 07:53 10/15/21 07:53 10/15/21 07:53 10/15/21 07:53 Period Temp Pulse Resp BP Sys/Martino Pulse Ox Last 24 Hr 98.3 F-100.5 F 75-85 20-24 128-152/69-80 93-100 Intake and Output 10/14/21 10/15/21 10/15/21 21:59 05:59 13:59 Intake Total 800 1300 50 Output Total 5177 000 5114 Balance -200 550 -950 Weight 94.075 kg Intake & Output: Intake & Output 10/14/21 10/15/21 10/15/21 21:59 05:59 13:59 Intake Total 800 1300 50 Output Total 3390 360 4329 Balance -200 550 -950 Weight 94.075 kg Intake: IV 1000 50 Sodium Chloride 0.9% 1,000 ml @ 1000 75 mls/hr IV .[id number] [facility] Rx#: [id number] Rocephin 2 gm In Dextrose 5% in 50 Water 50 ml @ 100 mls/hr IV DAILY [facility] Rx#:[id number] Oral 800 300 Output: Void Amount [id number] Other: Urine Appearance Clear Urine Color Bright Yellow Head Head exam: Present atraumatic, normal inspection and normocephalic Eye Eye exam: Present EOMI and PERRL; Absent nystagmus ENT ENT exam: Present mucous membranes moist, normal external ear exam and normal oropharynx Neck Neck exam: Present full ROM; Absent tenderness Respiratory Respiratory exam: Present CTAB; Absent accessory muscle use or respiratory distress Cardiovascular Cardiovascular exam: Present normal rate and rhythm; Absent bradycardia or gall op GI/Abdominal GI/Abdominal exam: Present normal bowel sounds and soft; Absent distended Extremities Exam Extremities exam: Present joint swelling, tenderness and neurovascular intact Additional comments: Swelling and redness improving and tenderness improving Neurological Exam Neurological exam: Present alert and oriented X3; Absent altered or motor sensory deficit OBJ DATA Labs CBC & Chem 7: 10/15/21 05:59 10/15/21 05:59 Labs: Abnormal Lab Results 10/15/21 10/15/21 10/14/21 05:59 05:59 12:25 WBC RBC 3.93 L Hgb 12.2 L Hct 36.6 L Neut % (Auto) 82.5 H Lymph % (Auto) 9.9 L Lymph # (Auto) 0.85 L Seg Neutrophils % Lymphocytes % Potassium 3.2 L BUN 6 L Glucose Calcium 8.2 L 8.2 L Total Bilirubin AST 65 H ALT 82 H Alkaline Phosphatase 364 H Total Protein 5.8 L Albumin 3.0 L 10/13/21 10/13/21 10/12/21 10:13 10:13 13:45 WBC RBC 4.02 L Hgb 12.7 L Hct 37.2 L Neut % (Auto) Lymph % (Auto) Lymph # (Auto) Seg Neutrophils % 90 H Lymphocytes % 4 L Potassium BUN Glucose 173 H 122 H Calcium 7.9 L 8.5 L Total Bilirubin 2.2 H AST 53 H 246 H ALT 84 H 158 H Alkaline Phosphatase 215 H 269 H Total Protein 5.4 L Albumin 2.7 L 10/12/21 13:45 WBC 12.3 H RBC 4.55 L Hgb Hct Neut % (Auto) Lymph % (Auto) Lymph # (Auto) Seg Neutrophils % 89 H Lymphocytes % 3 L Potassium BUN Glucose Calcium Total Bilirubin AST ALT Alkaline Phosphatase Total Protein Albumin Meds: Medications Acetaminophen (Acetaminophen 325 Mg Tablet) 650 mg PO Q6HP PRN; Protocol PRN Reason: Per Pain Protocol/Fever > 101 Last Admin: 10/12/21 21:50 Dose: 650 mg Documented by: Hydrocodone Bitart/Acetaminophen (Hydrocodone/Apap 5/325mg Tablet) 1 tab PO Q4HP PRN; Protocol PRN Reason: Per Pain Protocol Last Admin: 10/14/21 18:47 Dose: 1 tab Documented by: Albuterol/Ipratropium (Ipratropium/Albuterol 3 Ml Ampul.Neb) 3 ml NEB Q4HRT PRN PRN Reason: Wheezing Amlodipine Besylate (Amlodipine 5 Mg Tablet) 5 mg PO QDAY [facility] Last Admin: 10/15/21 09:27 Dose: 5 mg Documented by: Atorvastatin Calcium (Atorvastatin 40 Mg Tablet) [address] [facility] Last Admin: 10/14/21 20:21 Dose: 40 mg Documented by: Docusate Sodium (Docusate Sodium 100 Mg Capsule) 100 mg PO BID [facility] Last Admin: 10/15/21 09:28 Dose: 100 mg Documented by: Heparin Sodium (Porcine) (Heparin Flush 10 Units/Ml 5 Ml Syringe) 2 ml IV Q12 [facility] Sodium Chloride (Sodium Chloride 0.9%) 1,000 mls @ 75 mls/hr IV .[id number] [facility] Last Admin: 10/15/21 02:22 Dose: 75 mls/hr Documented by: Vancomycin HCl 1,500 mg/ (Sodium Chloride) 500 mls @ 333.3 mls/hr IV Q24H [facility] Last Admin: 10/15/21 10:11 Dose: Not Given Documented by: Ceftriaxone Sodium 2 gm/ (Dextrose) 50 mls @ 100 mls/hr IV DAILY [facility] Last Infusion: 10/15/21 09:57 Dose: Infused Documented by: Vancomycin HCl 1,500 mg/ (Sodium Chloride) 500 mls @ 333.3 mls/hr IV Q12H [facility] Last Admin: 10/15/21 10:11 Dose: 333.3 mls/hr Documented by: Losartan Potassium (Losartan 25 Mg Tablet) 25 mg PO QDAY [facility] Last Admin: 10/15/21 09:27 Dose: 25 mg Documented by: Magnesium Hydroxide (Magnesium Hydroxide 30 Ml Oral.Susp) 30 ml PO DAILYP PRN PRN Reason: Constipation Metoprolol Succinate (Metoprolol Succinate 25 Mg Tab.Xl.24h) 25 mg PO QDAY [facility] Last Admin: 10/15/21 09:27 Dose: 25 mg Documented by: Ondansetron HCl (Ondansetron 4 Mg/2 Ml Vial) 4 mg IV Q6HP PRN PRN Reason: Nausea And Vomiting Ondansetron HCl (Ondansetron 4 Mg Odt Tablet) 4 mg SL Q6HP PRN PRN Reason: Nausea And Vomiting Pantoprazole Sodium (Pantoprazole 40 Mg Tablet) 40 mg PO QAMAC [facility] Last Admin: 10/15/21 09:27 Dose: 40 mg Documented by: Prochlorperazine (Prochlorperazine 10 Mg/2 Ml Vial) 5 mg IV Q4HP PRN PRN Reason: Nausea And Vomiting Senna (Sennosides 1 Tablet) 2 tab PO HS [facility] Last Admin: 10/14/21 20:21 Dose: 2 tab Documented by: Sertraline HCl (Sertraline 50 Mg Tablet) 50 mg PO QDAY [facility] Last Admin: 10/15/21 09:28 Dose: 50 mg Documented by: Sodium Chloride (0.9 % Sodium Chloride 10 Ml Syringe) 10 ml IV Q8 [facility] Last Admin: 10/15/21 05:03 Dose: Not Given Documented by: Sodium Chloride (0.9 % Sodium Chloride 10 Ml Syringe) 10 ml IV UD PRN PRN Reason: FLUSH Sodium Chloride (0.9 % Sodium Chloride 10 Ml Syringe) 10 ml IV Q12 [facility] Vancomycin HCl (Vancomycin Per Pharmacy) 1 order IV UD [facility]; Protocol A/P Narrative Plan of Treatment: Sepsis Prepatellar bursitis and surrounding Cellulitis-MSSA Blood culture done in the ER -no growth so far Wound culture done in the ER-growing MSSA Continue vancomycin and ceftriaxone-pharmacy to dose vancomycin Ceftriaxone 2 g every 24 hours Orthopedic consulted and underwent needle drainage on 10/15/2021 since then patient is feeling better tenderness improving Discussed with orthopedic surgeon and recommended IV antibiotic outpatient we will try to get a PICC line placed and will keep the vancomycin as it will be easier to manage outpatient once daily dosing We will discontinue ceftriaxone and doxycycline 100 p.o. twice daily Elevated liver enzymes-improved History of alcoholism Possibly hepatocellular injury from sepsis Monitor liver enzymes-improving total bilirubin normalized Ultrasound of the right upper quadrant as needed Essential hypertension Continue home medications Hydralazine as needed Hyperlipidemia Continue home medications DVT prophylaxis SCDs We will hold any heparin products with expectation of surgical drainage Time Spent With Patient Time: Total time spent is greater than 50% in coordination of care (as documented) at patient's floor/unit and/or counseling patient: Total time spent with greater than 50% in coordination of care (as documented) at patient's floor/unit and/or counseling patient:: 35 - 50 minutes Critical Care Time: No QUALITY VTE Deep Vein Thrombosis/Pulmonary Embolism Present on Admission: No
[2021-10-15] MEDS: DOXYCYCLINE HYCLATE 100 MG TABLET.ORL PO SCH ×2 (11:50→20:52)
[2021-10-15] MEDS: SENNOSIDES 1 TABLET PO SCH (20:17)
[2021-10-15] MEDS: ATORVASTATIN 40 MG TABLET PO SCH (20:52)
[2021-10-15] MEDS: HYDROcodone/APAP 5/325MG TABLET PO PRN (20:54)
[2021-10-16] MEDS: 0.9 % SODIUM CHLORIDE 10 ML SYRINGE IV SCH ×2 (05:23→08:15)
[2021-10-16 06:51] LABS: Basophils # (Auto) 0.05 K/mcL (0.00-0.30); Basophils % (Auto) 0.7 % (0.0-2.0); Eosinophils # (Auto) 0.15 K/mcL (0.00-0.70); Eosinophils % (Auto) 2.2 % (0.0-7.0); Hematocrit 36.2 % (40.1-51.0); Hemoglobin 11.8 g/dL (13.7-17.5); Lymphocytes # (Auto) 0.76 K/mcL (1.50-4.80); Mean Cell Volume 95.5 fL (80.0-100.0); Mean Corpuscular HGB Conc 32.6 g/dL (31.0-36.0); Mean Platelet Volume 9.2 fL (7.4-10.4); Monocytes # (Auto) 0.56 K/mcL (0.10-0.90); Monocytes % (Auto) 8.1 % (1.0-12.0); Platelet Count 153 K/mcL (140-440); RBC 3.79 M/mcL (4.63-6.08); Red Cell Distribution Width 12.9 % (11.5-14.5); WBC 6.9 K/mcL (4.5-11.0)
[2021-10-16 07:10] LABS: ALT/SGPT 63 U/L (<40); AST/SGOT 41 U/L (<40); Albumin 2.7 gm/dL (3.2-5.2); Alkaline Phosphatase 358 U/L (39-117); Bilirubin,Total 0.6 mg/dL (0.1-1.0); Blood Urea Nitrogen 6 mg/dL (8-23); Carbon Dioxide 25 mmol/L (22-30); Chloride 103 mmol/L (96-108); Globulin 2.8 gm/dL (2.2-3.7); Glomerular Filtration Rate 86; Glucose 93 mg/dL (70-105)
[2021-10-16] MEDS: PANTOPRAZOLE 40 MG TABLET PO SCH (08:14)
[2021-10-16] MEDS: SERTRALINE 50 MG TABLET PO SCH (08:14)
[2021-10-16] MEDS: amLODIPine 5 MG TABLET PO SCH (08:14)
[2021-10-16] MEDS: METOPROLOL SUCCINATE 25 MG TAB.XL.24H PO SCH (08:15)
[2021-10-16] MEDS: LOSARTAN 25 MG TABLET PO SCH (08:15)
[2021-10-16] MEDS: DOXYCYCLINE HYCLATE 100 MG TABLET.ORL PO SCH (08:15)
[2021-10-16] MEDS: DOCUSATE SODIUM 100 MG CAPSULE PO SCH (08:15)
[2021-10-16] MEDS: VANCOMYCIN 1,500 MG in 0.9 % SODIUM CHLORIDE 500 ML IV SCH (10:35)
--- NOTE | 2021-10-16 11:06 | Discharge Summary ---
Discharge Provider Provider IMPORTANT FOLLOW-UP INFORMATION FOR PCP: Patient information: Note initiated : 10/16/21 at 11:04 am Service Date, if different from initiated Date: [] Patient: Jurgen Marrero 75 y/o M admitted on 10/12/21 for Knee pain. Chief Complaint: [] Date of admission: 10/12/21 16:27 Discharge date: 10/16/21 Primary care physician: Luis E Jeffers PA-C Consults: 10/12/21 14:45 Consult to Physician [CONS] Stat Comment: Consulting Provider: Smooth Tellez Reason For Exam: Physician to Consult COURSE Hospital Course Hospital course: 75-year-old male with a history of essential hypertension, hyperlipidemia, depression, alcoholism was brought into the emergency room because of worsening leg pain and swelling and redness around the knee joint. Patient reported history of fall 3 weeks ago on a hard surface and he had some abrasions there. Patient felt it was healing until day before yesterday started having redness and swelling around the knee joint. Patient was seen at the ER yesterday and was discharged on Keflex for cellulitis at that time his x-ray of the knee was unremarkable other than soft tissue swelling. At home patient swelling started worsening with severe pain and patient was brought back to the ER and reported fever. Initial evaluation in the ED showing leukocytosis mild tachycardia. Discussed with orthopedic surgeon and advised to start the patient on broad-spectrum antibiotic and admit to the facility and they will see the patient. 10/13 Patient swelling continued within the marked area No fever overnight Patient's liver enzymes improved Orthopedic surgeons evaluated the patient and recommended conservative management with antibiotics Patient had significant pain with activities this morning Leukocytosis improving 10/14 Patient continued having significant pain Redness contained within the marked area but still fluctuant and feel tight Orthopedic surgeon evaluated and continued antibiotic and conservative measures for now 10/15 Orthopedic evaluated the patient and underwent a needle aspiration removed almost 40 to 50 mL of pus drainage Patient's culture from the wound growing MSSA We will switch the antibiotic to cefazolin and p.o. doxycycline Discussed with orthopedic surgeon and recommended 10 to 14 days of IV antibiotic outpatient and follow-up in the clinic We will try to get the PICC line 10/16 Patient clinically improving Discussed with the orthopedic surgeon Dr. Tellez and recommended continuing IV antibiotics and follow-up outpatient. Patient reported that he is going to [facility] next in that case PICC line is not an option we will discharge him on peripheral IV with outpatient vancomycin. Patient will follow-up with his local clinic for vancomycin infusion and be verified with the clinic and they can have local pharmacist manage the trough level and vancomycin dosing. Patient trough level came back 12.7 today and will discharge him on 1.5 g every 12 hourly. His trough level needs to be rechecked in the next 24-hour and needs additional dosing which he verified with the local pharmacy and they can manage. Dr. Tellez will see the patient before he go to [facility] and decide further management. Patient will also be discharged on doxycycline. If he needs to be switched to an oral antibiotic Augmentin would be a good option. Patient's wound culture growing MSSA. His needle aspiration culture is pending this needs to be followed up with the outpatient orthopedic surgeon Sepsis-resolved Prepatellar bursitis and surrounding Cellulitis-MSSA Blood culture done in the ER -no growth so far Wound culture done in the ER-growing MSSA Orthopedic surgeon Dr. Tellze recommended outpatient IV antibiotics patient will be discharged on vancomycin. Local pharmacy will follow up on the trough level and adjust the dosing he will be discharged on 1.5 g every 12 hourly and his trough level is 12.[address] Tellez will see him outpatient and decide on further management Patient reportedly going to [facility] next advised him to see orthopedic surgeon before he goes and updated the surgeon Elevated liver enzymes-improved History of alcoholism Possibly hepatocellular injury from sepsis Monitor liver enzymes-improving total bilirubin normalized Ultrasound of the right upper quadrant as needed Essential hypertension Continue home medications Hydralazine as needed Hyperlipidemia Continue home medications Discharge diagnosis: Prepatellar bursitis and cellulitis Time Spent with Patient Time attestation: Total time spent providing and/or coordinating discharge services: Time spent: Greater than 30 minutes EXAM Constitutional Vitals: Temp Pulse Resp BP Pulse Ox 98.5 F 74 20 142/73 93 10/16/21 07:07 10/16/21 04:00 10/16/21 07:07 10/16/21 07:07 10/16/21 07:07 General appearance: cooperative and no acute distress Head Head exam: Present atraumatic and normal inspection Expanded Head Exam Head exam: Present tenderness of temporal artery; Absent abrasion or laceration Eye Eye exam: Present PERRL; Absent conjunctival injection or nystagmus Respiratory Respiratory exam: Present normal respiratory exam; Absent accessory muscle use or respiratory distress Cardiovascular Cardiovascular exam: Present normal rate and rhythm; Absent bradycardia or gallop GI/Abdominal GI/Abdominal exam: Present normal bowel sounds and soft; Absent distended Expanded Lower Extremity Exam Knee exam: Present abrasion, erythema, swelling and tenderness Back Exam Additional comments: knee swelling and redness improving Discharge Data Data Completed and Pending Labs on day of discharge: Labs from last 24 hours 10/16/21 10/16/21 10/16/21 08:55 05:28 05:28 WBC 6.9 RBC 3.79 L Hgb 11.8 L Hct 36.2 L MCV 95.5 MCH 31.1 MCHC 32.6 RDW 12.9 Plt Count 153 MPV 9.2 Neut % (Auto) 78.0 Lymph % (Auto) 11.0 L [place] % (Auto) 8.1 Eos % (Auto) 2.2 Baso % (Auto) 0.7 Lymph # (Auto) 0.76 L [place] # (Auto) 0.56 Eos # (Auto) 0.15 Baso # (Auto) 0.05 Absolute Neutrophils 5.40 Sodium 137 Potassium 3.4 Chloride 103 Carbon Dioxide 25 Anion Gap 9.0 BUN 6 L Creatinine 0.8 GFR Calculation 86 Glucose 93 Calcium 8.0 L Magnesium 2.4 Total Bilirubin 0.6 AST 41 H ALT 63 H Alkaline Phosphatase 358 H Total Protein 5.5 L Albumin 2.7 L Globulin 2.8 Albumin/Globulin Ratio 1.0 Vancomycin Trough 12.7 Preliminary micro results at discharge 10/12/21 13:49 Blood Culture - Preliminary Blood 10/12/21 13:45 Blood Culture - Preliminary Blood Discharge Plan Patient/Caregiver Discharge Instructions Activity: increase activity as tolerated Diet: Regular Diet Activity Restrictions/Additional Instructions: Follow-up with Dr. Tellez before next Tuesday-surgeon aware Continue antibiotic vancomycin through the peripheral IV at the outside facility and dose needs to be monitored and managed by the local pharmacist Prescriptions: New vancomycin 1,000 mg recon soln 1,500 mg IV Q12H 6 Days 0RF tramadol 50 mg tablet 50 mg PO Q6H PRN (Reason: pain) Qty: 20 0RF doxycycline hyclate 100 mg capsule 100 mg PO BID Qty: 20 0RF Continued aspirin 81 mg tablet,delayed release (DR/EC) 81 mg PO QDAY 0RF sertraline 50 mg tablet 50 mg PO QDAY 90 Days Qty: 90 3RF Rx Instructions: for mood olmesartan 20 mg tablet 20 mg PO QDAY Qty: 90 3RF metoprolol succinate 25 mg tablet extended release 24 hr 25 mg PO QDAY 90 Days Qty: 90 3RF amlodipine 5 mg tablet 5 mg PO QDAY 90 Days Qty: 90 3RF losartan 25 mg tablet 25 mg PO QDAY 0RF Label Comments: [NO ORIGINAL SIG] rosuvastatin 5 mg tablet 20 mg PO QPM 0RF Rx Instructions: for high cholesterol Follow Up Plan Follow up with: Luis E Jeffers PA-C [Primary Care Provider] - Smooth Tellez MD [Physician] - Patient Disposition: Home, Self-Care Plan of Treatment: Sepsis Prepatellar bursitis and surrounding Cellulitis-MSSA Blood culture done in the ER -no growth so far Wound culture done in the ER-growing MSSA Continue vancomycin and ceftriaxone-pharmacy to dose vancomycin Ceftriaxone 2 g every 24 hours Orthopedic consulted and underwent needle drainage on 10/15/2021 since then patient is feeling better tenderness improving Discussed with orthopedic surgeon and recommended IV antibiotic outpatient we will try to get a PICC line placed and will keep the vancomycin as it will be easier to manage outpatient once daily dosing We will discontinue ceftriaxone and doxycycline 100 p.o. twice daily Elevated liver enzymes-improved History of alcoholism Possibly hepatocellular injury from sepsis Monitor liver enzymes-improving total bilirubin normalized Ultrasound of the right upper quadrant as needed Essential hypertension Continue home medications Hydralazine as needed Hyperlipidemia Continue home medications DVT prophylaxis SCDs We will hold any heparin products with expectation of surgical drainage Rehab Potential: Fair I certify that the patient requires SNF services: No Overall status at discharge: patient is progressing back to baseline Discharge Orders: Discharge Order (Routine); Ordered 10/16/21 Ordered By: Bridget MARIE VTE Deep Vein Thrombosis/Pulmonary Embolism Present on Admission: No
== END 2021-10-16 14:45 | disposition home or self-care (01) | DRG 558 ==
LOC: ED 13:23 → MEDSUR 16:27
PROVIDERS: ADMIT Internal Medicine; ATTEND Internal Medicine